=== PATIENT | female | born 1955 | race Caucasian/White ===

== ENCOUNTER 2020-03-26 06:17 | Day surgery (SDC) | payer BC ==
--- NOTE | 2020-03-24 11:35 | PCM.PREANE ---
Preanesthetic Assessment - Procedure Proposed Procedure: Right Total Knee Arthroplasty Revision - Anesthesia/Transfusion/Family Hx Anesthesia History: Prior Anesthesia Without Reaction Family History of Anesthesia Reaction: No Transfusion History: No Prior Transfusion(s) Intubation History: Unknown - Review of Systems General: No Symptoms Pulmonary: No Symptoms (THERESA- Former smoker: about 5 years ETOH: occasionally) Cardiovascular: No Symptoms (HTN) Gastrointestinal: No Symptoms Neurological: No Symptoms, Headache, Tingling (left sciatic nerve pain 7/10) Other: Reports: None (History of Rheumatoid Arthritis), Easy Bruising, Sinus Problem (alleries) - Physical Assessment NPO Status Date: 03/25/20 NPO Status Time: 21:00 Vital Signs: HR:66 Sat: 97% Temp: 97.8 Resp: 16 B/P: 143/87 Height: 1.73 m Weight: 90 kg ASA Class: 2 Mental Status: Alert & Oriented x3 Airway Class: Mallampati = 2 Dentition: Reports: Normal Dentition, [place](s), Caries Thyro-Mental Finger Breadths: 3 Mouth Opening Finger Breadths: 3 ROM/Head Extension: Full Lungs: Clear to Auscultation, Normal Respiratory Effort Cardiovascular: Regular Rate, Regular Rhythm, No Murmurs - Lab Values: All labs reviewed and noted and within acceptable ranges to proceed with scheduled procedure. - Imaging/EKG Impressions: EKG: NSR rate=66 CXR: unremarkable (dextroscoliosis noted) - Allergies Allergies/Adverse Reactions: Allergies Allergy/AdvReac Type Severity Reaction Status Date / Time No Known Allergies Allergy Verified 03/25/20 14:53 - Anesthesia Plan Pre-Op Medication Ordered: None, Other (PREOP meds all oral: lyrica,tylenol,oxycodone all @0630) - Acknowledgements Anesthesia Type Planned: General Anesthesia, Spinal (Right Adductor Canal block under US guidance for post operative pain control requested by Dr. Guillen.) Pt an Appropriate Candidate for the Planned Anesthesia: Yes Alternatives and Risks of Anesthesia Discussed w Pt/Guardian: Yes Pt/Guardian Understands and Agrees with Anesthesia Plan: Yes PreAnesthesia Questionnaire - HOME MEDS Home Medications: Home Meds Aspirin/Acetaminophen/Caffeine [Excedrin Migraine Caplet] 1 tab PO DAILY 03/25/20 [History] Cholecalciferol (Vitamin D3) [Vitamin D3] 5,000 unit PO DAILY 03/25/20 [History] Dextromethorphn/Acetaminoph/CP [Vicks Nyquil Cold & Flu Liquid] 1 dose PO ASDIRECTED PRN 03/25/20 [History] Folic Acid 2 mg PO DAILY 03/25/20 [History] Hydroxychloroquine [Plaquenil] 200 mg PO BID 03/25/20 [History] L.acidoph,Paracasei, B.lactis [Probiotic] 1 cap PO DAILY 03/25/20 [History] estradioL [Vivelle-Dot] 1 patch TOP Q7D 03/25/20 [History] hydroCHLOROthiazide [Hydrochlorothiazide] 25 mg PO DAILY 03/25/20 [History] Aspirin [Aspirin EC] 325 mg PO BID #84 tab 03/26/20 [Rx] Cyclobenzaprine [Flexeril] 10 mg PO BID PRN #20 tab 03/26/20 [Rx] oxyCODONE 5 - 10 mg PO Q4H PRN #60 tab 03/26/20 [Rx] - CURRENT (IN HOUSE) MEDS Current Meds: Current Medications Lactated Ringer's (Ringers, Lactated) 1,000 mls @ 125 mls/hr IV ASDIRECTED BIBI Stop: 03/26/20 23:00 Lidocaine/Sodium Bicarbonate (Buffered Lidocaine 1% In Ns 8.4%) 0.25 ml IDERM ONETIME PRN PRN Reason: Prior to IV Start Stop: 03/26/20 18:00 Sodium Chloride (Saline Flush) 10 ml FLUSH ASDIRECTED PRN PRN Reason: Keep Vein Open Stop: 03/26/20 18:00
--- NOTE | 2020-03-25 03:01 | PCM.SN.2 ---
- Free Text/Narrative Note: Right selective femoral nerve block at the adductor canal for post-procedure pain control under US guidance requested by Dr. Guillen. Time Out: 1021 Start: 1024 End: 1031 Chart reviewed. Consent signed. Questions answered. Appropriate monitors applied. Time out performed. Right mid-shaft femur identified with ultrasound, scanning medially of femur, the femoral artery in the adductor canal visualized, and the femoral nerve located laterally to the artery. The skin was prepped lateral to the ultrasound probe with chlorahexadine times two. The 21ga 4 insulated block needle was inserted under direct ultrasound guidance into the adductor canal. 25mL of 0.5% ropivacaine with 1:200,000 epinephrine was injected circumferentially around the nerve with intermittent negative aspiration noted. Patient tolerated the procedure well. Sterile technique noted along with sterile gloves, mask, and sterile probe cover. See picture on progress note and vital signs on nurses notes. Block completed in PACU. Latoya Viramontes CRNA
[~2020-03-26 06:17] MED LIST: Acetaminophen 325 MG Tab PO SCH; Dexamethasone 4 MG/ML 5 ML MDV ONE; EPINEPHrine 1 MG/ML SDV ONE; Ketamine 500 mg/10 ML MDV ONE; Lactated Ringers 1,000 ML IV SCH; Lactated Ringers 2,000 ML ONE; Lidocaine 1% 4 ML ONE; Lidocaine 1%/Sod Bicarbonate in NS 8.4% 1 ML Syringe IDERM PRN; Midazolam 1 MG/ML 2 ML SDV ONE; Ondansetron 4 MG/2 ML SDV ONE; Pregabalin 25 MG Cap PO SCH; Propofol 200 MG/20 ML SDV ONE; Ropivacaine 0.5% 5 MG/ML 30 ML SDV ONE; Sodium Chloride 0.9% 10 ML Syringe FLUSH PRN; ceFAZolin 1 GM Vial ONE; fentaNYL 100 MCG/2 ML SDV ONE; oxyCODONE ER 10 MG TAB.ER PO SCH
[2020-03-26] MEDS ORDERED: EPINEPHrine 1 MG/ML SDV ONE (07:11)
[2020-03-26] MEDS ORDERED: fentaNYL 100 MCG/2 ML SDV IVPUSH PRN (07:31)
[2020-03-26] MEDS ORDERED: diphenhydrAMINE 50 MG/ML SDV IVPUSH PRN (07:31)
[2020-03-26] MEDS ORDERED: ePHEDrine 50 MG/ML SDV IVPUSH PRN (07:31)
[2020-03-26] MEDS ORDERED: HYDROmorphone 0.5 MG/0.5 ML Syringe IVPUSH PRN (07:31)
[2020-03-26] MEDS ORDERED: Ondansetron 4 MG/2 ML SDV IVPUSH PRN (07:31)
[2020-03-26] MEDS ORDERED: ePHEDrine 50 MG/ML SDV ONE (08:27)
[2020-03-26] MEDS ORDERED: Propofol 200 MG/20 ML SDV ONE ×2 (08:28→09:03)
[2020-03-26] MEDS ORDERED: HYDROmorphone 0.5 MG/0.5 ML Syringe ONE ×2 (08:49→09:24)
[2020-03-26] MEDS: Bupivacaine 0.25% 10 ML SDV ONE ×2 (09:34→09:37)
[2020-03-26] MEDS: Vancomycin 1 GM SDV ONE ×2 (09:35→09:51)
[2020-03-26] MEDS: Morphine 8 MG, EPINEPHrine 0.3 MG, Cefuroxime 750 MG, Ketorolac 30 MG, Sodium Chloride ... PRN ×10 (09:35→09:38)
[2020-03-26] MEDS ORDERED: Ketorolac 30 MG/ML SDV ONE (09:50)
--- NOTE | 2020-03-26 10:19 | PCM.POSTAN ---
POST ANESTHESIA ASSESSMENT - MENTAL STATUS Mental Status: Alert - VITAL SIGNS Vital Signs: Last Vital Signs Temp 97.8 03/26/20 1013 Pulse 73 03/26/20 1013 Resp 7 03/26/20 1013 BP 99/53 03/26/20 1013 Pulse Ox 94% 03/26/20 1013 - RESPIRATORY Respiratory Status: Respiratory Rate WNL, Airway Patent, O2 Saturation Stable, Supplemental Oxygen - CARDIOVASCULAR CV Status: Pulse Rate WNL, Blood Pressure Stable - GASTROINTESTINAL GI Status: No Symptoms - POST OP HYDRATION Hydration Status: Adequate & Stable
--- NOTE | 2020-03-26 11:18 | CR ---
PROCEDURE INFORMATION: Exam: XR Right Knee Exam date and time: 03/26/2020 10:23 AM Age: 64 years old Clinical indication: Screening exam; Post op knee; Prior surgery; Surgery date: Post-operative (0-2 days) TECHNIQUE: Imaging protocol: XR Right knee. Views: 1 or 2 views. COMPARISON: CR Knee 3V Rt 02/11/2020 11:15 AM FINDINGS: Bones/joints: There has been a change in the right knee replacement. The new hree replacement appears in good alignment. There is joint air. There is posterior patellar resurfacing which appears more advanced than the previous examination. Soft tissues: Normal. IMPRESSION: New well aligned total knee replacement. Thank you for allowing us to participate in the care of your patient. Dictated and Authenticated by: Carmine Brooke MD 03/26/2020 12:08 PM Central Time ([place] & [place]) COLLEEN
--- NOTE | 2020-03-26 11:25 | PCM48HPAN ---
Post Anesthesia Note - EVALUATION WITHIN 48HRS OF ANESTHETIC Vital Signs in Normal Range: Yes Patient Participated in Evaluation: Yes Respiratory Function Stable: Yes Airway Patent: Yes Cardiovascular Function Stable: Yes Hydration Status Stable: Yes Pain Control Satisfactory: Yes Nausea and Vomiting Control Satisfactory: Yes Mental Status Recovered: Yes Vital Signs: Last Vital Signs Temp 36.5 C 03/26/20 11:15 Pulse 61 03/26/20 11:15 Resp 13 03/26/20 11:15 BP 97/67 03/26/20 11:15 Pulse Ox 96 03/26/20 11:15
[2020-03-26] MEDS ORDERED: oxyCODONE 5 MG Tab PO PRN (14:35)
--- NOTE | 2020-04-07 15:44 | PCM.OPNOTE ---
- General Post-Op/Procedure Note Date of Surgery/Procedure: 03/26/20 Operative Procedure(s): revision right total knee arthroplasty Pre Op Diagnosis: right painful total knee arthroplasty Post-Op Diagnosis: Same Anesthesia Technique: Local, MAC, Spinal Primary Surgeon: Cristian Guillen Anesthesia Provider: Latoya Viramontes Community Service Officer Coordinator: Joann Ball Community Service Officer Coordinator: Amina Gardner EBBette in mLs: 5 Complications: None Condition: Good Free Text/Narrative:: 5 femur 5mm distal femoral augments 4 tibia 5mm tibial augments 12x50 stems size A cone
--- NOTE | 2020-04-08 16:31 | OR ---
DATE OF OPERATION: 03/26/2020 SURGEON: Cristian Guillen MD OPERATION PERFORMED: Revision of right total knee arthroplasty. PREOPERATIVE DIAGNOSIS: Painful right total knee arthroplasty with instability. POSTOPERATIVE DIAGNOSIS: Painful right total knee arthroplasty with instability. ANESTHESIA: Local MAC with spinal. ANESTHESIA PROVIDER: Latoya Viramontes CRNA ASSISTANTS: Joann Ball PA-C and Amina Gardner LPN. ESTIMATED BLOOD LOSS: 5 mL. COMPLICATIONS: None. CONDITION: Stable. IMPLANTS: 1. [place] size 5 PS femur. 2. June size 5 mm distal femoral augments. 3. June size 4 universal tibial baseplate. 4. June size 4, 5 mm tibial augments. 5. [place] size 12 x 50 mm stem x2. 6. June size A cone in the tibia. 7. [place] size 35 x 10 mm patella. DESCRIPTION OF PROCEDURE: The patient was identified in the preoperative holding area. Proper site was marked and identified by the surgeon. The patient was taken back to the operative theater, where after adequate anesthesia, the patient's right lower extremity had a nonsterile tourniquet applied and then sterilely prepped and draped in the usual sterile fashion. OR time-out was performed. The patient received 2 g of IV Ancef. Right lower extremity was exsanguinated and tourniquet was insufflated to 250 mmHg. The previous incision was utilized, and a medial parapatellar arthrotomy was created. Deep fibers of the MCL were raised and the scar tissue around the patellar tendon as well as the patella was resected at this time. The patellar button was identified and I was able to resect off just below the patella. I then measured, it measured 16, I resected it to 14 and I was able to drill holes for a 35 x 10 mm patella. Attention was turned to the femur. Flexible osteotome and then a reciprocating saw were used just under the cement mantle to resect off the distal femoral component and came off with almost no bone loss. Attention was then turned to the tibia. The poly was then taken out and the tibia, again using reciprocating saw and a flexible osteotome to remove the tibial component with almost no bone loss. Excess cement from inside the canal was resected out at this time using reverse curettes and osteotomes. Once this was completed, the intramedullary cutting guide for the tibia was done and resection was done off the tibia 2 mm from its previous resection down to good healthy bone. The intramedullary ebenezer was kept in and the cone reamer was used for size A cone and was found to have adequate purchase. Once this was completed, I did ream for a 50 mm stem and the tibia was found to have adequate depth. The tibia was then stamped and drilled in the proper rotation. Attention was turned to the femur. The all-in-one trial cutting block was then placed for a size 5 femur. I was able to resect out to the box and I was able to resect off the distal femur in a 5 mm augment slot. The posterior needed no augments and just a clean-up cut was done on the 0 and the rest of the cuts were found to be adequate. The trial implant was then placed after I reamed for 50 mm stem in the femur as well. Trial implants, size 11 poly was first placed and was found to be significantly loose still, so I did decide to trial 5 mm augments on both the tibia and the femur, and then did a 13 mm poly which had significant stability to varus valgus stresses, and the patient had full range of motion, full flexion and extension without any instability noted throughout. At this time, cement was mixed on the back table. All cut surfaces were irrigated with pulse lavage irrigation. Before this, the patella was tracking centrally. All cut surfaces were dried. The size A cone was impacted into place. Cement restrictors were then placed down the tibial and the femoral canals. Cement was placed on the tibia and the tibial component was cemented into place with the 5 mm augments. The femur was then cemented into place with 5 mm augments and a 13 mm PS X3 polyethylene was then placed. The patient's knee was brought out in full extension and a 35 x 10 mm patella was cemented into place. Periarticular injection was then completed. 1 L of pulse lavage irrigation with Ancef was taken through the knee along with IrriSept irrigation. Periarticular tranexamic acid and vancomycin powder were then applied. A #2 barbed suture was used for closure of the medial parapatellar arthrotomy, 2-0 Vicryl was used subcutaneously, and Prineo was used for the skin. The patient tolerated the procedure well and was sent to PACU in stable condition. MMODAL /[id number]
== END 2020-03-26 15:41 | disposition home or self-care (01) ==
LOC: JD.SDS 06:17 → EDSTATUS 07:30 → JD.SDS 15:41
PROVIDERS: ATTEND Orthopaedic Surgery
DX: T84.84XA Pain due to internal orthopedic prosthetic devices, implants and grafts, initial encounter (principal); M23.51 Chronic instability of knee, right knee; G47.33 Obstructive sleep apnea (adult) (pediatric); I10 Essential (primary) hypertension; Z79.899 Other long term (current) drug therapy; Z01.812 Encounter for preprocedural laboratory examination; Z20.828 Contact with and (suspected) exposure to other viral communicable diseases; Z87.891 Personal history of nicotine dependence
CPT/HCPCS: 27447; 73560; 97110; 97116; 97161; 97165; A9270; C1713; C1776; J0171; J0690; J0697; J1100; J1170; J1885; J2001; J2250; J2270; J2370; J2405; J2704; J2795; J3010; J3370; J3490; J7120; 01402; 64450